=== PATIENT | female | born 1970 | race African-American/Black ===

== ENCOUNTER 2019-10-12 09:14 | Emergency (ER) | payer OTHER ==
[2019-10-12 09:28] VITALS: TEMP 98.7; BMI 50.8
[2019-10-12 10:01] LABS: URINE APPEARANCE CLEAR; URINE BILIRUBIN NEGATIVE (NEGATIVE); URINE COLOR YELLOW; URINE GLUCOSE (UA) NEGATIVE (NEGATIVE); URINE KETONE NEGATIVE (NEGATIVE); URINE LEUK ESTERASE NEGATIVE (NEGATIVE); URINE NITRITE NEGATIVE (NEGATIVE); URINE PROTEIN NEGATIVE (NEGATIVE)
--- NOTE | 2019-10-12 10:09 | PDOC ---
History of Present Illness - General History Source: Patient Exam Limitations: No Limitations - History of Present Illness Initial Comments: 10/12/19 09:34 49-year-old female presents the ED with complaints of bilateral posterior leg pain worsened with standing along with lower back pain. Patient states was recently treated for kidney infection and completed the Bactrim. Patient states took nothing for the pain and since she was escorting her daughter sent to the emergency room she decided to be evaluated here in the ED. Otherwise no complaints including weakness, Incontinence, or saddle anesthesia. Is this a multiple visit Asthma Patient?: No Timing/Duration: 1 week (intermittently) Severity: mild Associated Symptoms: reports: denies symptoms <Lois Beltre - Last Filed: 10/12/19 11:06> <Melyssa Aquino - Last Filed: 10/12/19 14:24> - General Chief Complaint: Pain, Acute Stated Complaint: UTI Time Seen by Provider: 10/12/19 09:39 Past History - Travel Traveled outside of the country in the last 30 days: No Close contact w/someone who was outside of country & ill: No - Past Medical History Cardiac Disorders: Yes ("mini heart attacks" 2013) COPD: No HTN: Yes (eclampsia) - Surgical History Abdominal Surgery: Yes (gastric bypass) - Psycho Social/Smoking Cessation Hx Smoking History: Never smoked Patient Lives Alone: No Lives with/in: spouse/SO <Lois Beltre - Last Filed: 10/12/19 11:06> <Melyssa Aquino - Last Filed: 10/12/19 14:24> - Past Medical History Allergies/Adverse Reactions: Allergies Allergy/AdvReac Type Severity Reaction Status Date / Time ciprofloxacin [From Cipro] AdvReac Verified 10/12/19 09:26 Home Medications: Ambulatory Orders Cyclobenzaprine HCl [Flexeril -] 5 mg PO TID PRN #12 tablet 10/12/19 Ferrous Sulfate [Feosol] 325 mg PO ASDIR 10/12/19 Ibuprofen [Motrin -] 600 mg PO TID PRN #21 tablet 10/12/19 Review of Systems - Review of Systems Able to Perform ROS?: Yes Constitutional: No: Symptoms Reported HEENTM: No: Symptoms Reported Respiratory: No: Symptoms reported Cardiac (ROS): No: Symptoms Reported ABD/GI: No: Symptoms Reported : No: Symptoms Reported Musculoskeletal: Yes: Symptoms Reported, Back Pain (lower), Other (Right sciatica tenderness). No: Joint Pain Integumentary: No: Symptoms Reported Neurological: No: Weakness Hematologic/Lymphatic: No: Symptoms Reported <Lois Beltre - Last Filed: 10/12/19 11:06> *Physical Exam - Vital Signs Last Vital Signs Temp Pulse Resp BP Pulse Ox 98.7 F 68 18 126/79 99 10/12/19 09:26 10/12/19 09:26 10/12/19 09:26 10/12/19 09:26 10/12/19 09:26 - Physical Exam General Appearance: Yes: Nourished, Appropriately Dressed. No: Apparent Distress HEENT: positive: EOMI. negative: Pale Conjunctivae Gastrointestinal/Abdominal: positive: Soft. negative: Tenderness Musculoskeletal: negative: CVA Tenderness, Vertebral Tenderness (Bilateral paraspinous at lumbar L4 level) Extremity: positive: Normal Inspection Integumentary: positive: Normal Color, Warm, Moist Neurologic: positive: Motor Strength 5/5 (ambulatory) <Lois Beltre - Last Filed: 10/12/19 11:06> - Vital Signs Last Vital Signs Temp Pulse Resp BP Pulse Ox 98.7 F 68 18 126/79 99 10/12/19 09:26 10/12/19 09:26 10/12/19 09:26 10/12/19 09:26 10/12/19 09:26 <Melyssa Aquino - Last Filed: 10/12/19 14:24> ED Treatment Course - ADDITIONAL ORDERS Additional order review: Laboratory Results 10/12/19 09:51 Urine Color Yellow Urine Appearance Clear Urine pH 6.0 Ur Specific [place] 1.012 Urine Protein Negative Urine Glucose (UA) Negative Urine Ketones Negative Urine Blood Negative Urine Nitrite Negative Urine Bilirubin Negative Urine Urobilinogen 1.0 Ur Leukocyte Esterase Negative <Lois Beltre - Last Filed: 10/12/19 11:06> - ADDITIONAL ORDERS Additional order review: Laboratory Results 10/12/19 09:51 Urine Color Yellow Urine Appearance Clear Urine pH 6.0 Ur Specific [place] 1.012 Urine Protein Negative Urine Glucose (UA) Negative Urine Ketones Negative Urine Blood Negative Urine Nitrite Negative Urine Bilirubin Negative Urine Urobilinogen 1.0 Ur Leukocyte Esterase Negative <Melyssa Aquino - Last Filed: 10/12/19 14:24> Medical Decision Making - Medical Decision Making 10/12/19 10:00 CC:Chief complaint: Patient with lower back pain radiating down bilateral legs right greater than left. Patient also states was recently treated for UTI/ pyelonephritis with Bactrim and concern with recurrent UTIs although she has no urinary complaints. Exam: Patient with no CVA tenderness. Mild bilateral lumbar paraspinous tenderness at right sciatic tenderness. No weakness normal axial loading Plan: Urinalysis urine culture patient offered analgesics but refused. Patient ordered for x-ray of the lumbar spine. 10/12/19 11:06 Lumbar x-ray negative for acute pathology. Discharge initiated <Lois Beltre - Last Filed: 10/12/19 11:06> - Medical Decision Making The patient was seen and evaluated in conjunction with midlevel provider under my direct supervision, ancillary studies were reviewed. I agree with the plan as outlined with [employer] Junito. HPI, workup/dispo as outlined. VS reviewed, wnl. anticipate discharge, pcp followup, return precautions 10/12/19 12:25 <Melyssa Aquino - Last Filed: 10/12/19 14:24> Discharge - Discharge Information Problems reviewed: Yes <Lois Beltre - Last Filed: 10/12/19 11:06> <Melyssa Aquino - Last Filed: 10/12/19 14:24> - Discharge Information Clinical Impression/Diagnosis: Sciatica of right side Condition: Good Disposition: HOME - Additional Discharge Information Prescriptions: Cyclobenzaprine HCl [Flexeril -] 5 mg PO TID PRN #12 tablet PRN Reason: Back Pain Ibuprofen [Motrin -] 600 mg PO TID PRN #21 tablet PRN Reason: Pain - Patient Discharge Instructions Patient Printed Discharge Instructions: DI for Back Pain With Sciatica Additional Instructions: Take medication as prescribed. Drink plenty of fluids. Do not operate any heavy machinery while taking this medication. We will notify you if your urine culture is positive
[2019-10-12 14:39] VITALS: BP 126/68; PULSE 65
== END 2019-10-12 14:39 | disposition home or self-care (01) ==
LOC: JER 09:14
DX: M54.41 Lumbago with sciatica, right side (principal); Z87.440 Personal history of urinary (tract) infections; I10 Essential (primary) hypertension; Z88.1 Allergy status to other antibiotic agents; Z86.79 Personal history of other diseases of the circulatory system
CPT/HCPCS: 72100-TC-FY; 81003; 87086; 99282-25